=== PATIENT | female | born 1945 | race Caucasian/White ===

== ENCOUNTER 2018-11-16 10:50 | Inpatient (IN) | payer OTHER ==
--- NOTE | 2018-11-16 06:47 | PDHPUP ---
History & Physical Update H&P update statement: This history and physical update is based on an assessment of the patient which was completed after admission or registration (within 24 hours), but prior to the surgery/procedure. H&P update: H&P reviewed & patient examined, no change in patient's condition since H&P completed
[~2018-11-16 10:50] MED LIST: ALBUTEROL 60 PUFFS/8 GM MDI IH PRN
[2018-11-16] MEDS ORDERED: ACETAMINOPHEN 500 MG TAB PO ONE (11:23)
[2018-11-16] MEDS ORDERED: ceFAZolin 2 GM/DEXTROSE 100 ML IV ONE (11:23)
[2018-11-16] MEDS ORDERED: GABAPENTIN 300 MG CAP PO ONE (11:23)
[2018-11-16] MEDS ORDERED: BACITRACIN 50,000 UNITS/10 ML SYR IRR ONE (11:32)
[2018-11-16] MEDS ORDERED: EPINEPHrine 1 MG/ML INJ ONE (11:32)
[2018-11-16] MEDS ORDERED: THROMBIN (BOVINE) 20,000 UNIT VIAL TP ONE (11:32)
[2018-11-16] MEDS ORDERED: CHLORHEXIDINE GLUC HIBICLENS 118 ML BTL TP ONE (11:32)
[2018-11-16] MEDS ORDERED: BUPIVACAINE 0.25% 30 ML SDV ONE (11:32)
[2018-11-16] MEDS ORDERED: GABAPENTIN 300 MG CAP ONE (11:58)
[2018-11-16] MEDS ORDERED: ACETAMINOPHEN 500 MG TAB ONE (11:58)
[2018-11-16] MEDS ORDERED: CEFAZOLIN 2 GM/DEXTROSE/100 ML BAG IV ONE (11:58)
--- NOTE | 2018-11-16 12:23 | PDANEPAE ---
ANE Past Medical History - Cardiovascular History Hx Hypertension: Yes Hx Arrhythmias: No Hx Chest Pain: No Hx Coronary Artery / Peripheral Vascular Disease: No Hx CHF / Valvular Disease: No Hx Palpitations: No Cardiovascular History Comment: pcp monitors bp medications - Pulmonary History Hx COPD: No Hx Asthma/Reactive Airway Disease: Yes Hx Recent Upper Respiratory Infection: No Hx Oxygen in Use at Home: No Hx Sleep Apnea: No Sleep Apnea Screening Result - Last Documented: Negative Pulmonary History Comment: prone to bronchitis with colds. instructed pt to bring inhaler - Neurologic History Hx Cerebrovascular Accident: No Hx Seizures: No Hx Dementia: No Neurologic History Comment: hx of spinal fusion - Endocrine History Hx Diabetes: Yes Hypothyroid: Yes Hyperthyroid: No Obesity: no Endocrine History Comment: type 2. hypothyroidism - Renal History Hx Renal Disorders: No - Liver History Hx Hepatic Disorders: No - Neurological & Psychiatric Hx Hx Neurological and Psychiatric Disorders: No - Cancer History Hx Cancer: No - Congenital Disorder History Hx Congenital Disorders: No - GI History Hx Gastrointestinal Disorders: Yes Gastrointestinal History Comment: reflux - Other Health History Other Health History: wears glasses. scalp cellulitis at times, uses topical clindamycin- no issues currently - Chronic Pain History Chronic Pain: Yes (bilateral legs, hips) - Surgical History Prior Surgeries: prp injections on bilateral knees 2016. original spinal fusion 12/02/09. prk vision correction 03/24/2000. doreen 05/02/1997. right ganglion cyst 04/28/1986. d&c 09/06/1969. oral surgery 10/14/1964 and 1963. toenail cyst 04/13/1957. tonsillectomy 07/1951 ANE Review of Systems Review of Systems: - Exercise capacity METS (RN): 4 METS ANE Patient History - Allergies Allergies/Adverse Reactions: codeine Allergy (Verified 11/16/18 11:27) "I fly aka its a high" and nausea cyclobenzaprine [From Flexeril] Allergy (Verified 11/16/18 11:27) RLS, cant sit still pregabalin [From Lyrica] Allergy (Verified 11/16/18 11:27) RLS, cant sleep/sit still Sulfa (Sulfonamide Antibiotics) Allergy (Verified 11/16/18 11:27) GI Upset - Home Medications Home Medications: Albuterol [Proventil Inhaler HFA (*)] 1 - 2 puffs IH Q4H PRN 02/21/19 [Last Taken Unknown] Aspirin [Aspirin 81mg (*)] 81 mg PO DAILY 11/03/18 [Last Taken 11/15/18] Cholecalciferol Vit D3 [Vitamin D3 (*)] 1,000 units PO DAILY 11/03/18 [Last Taken 11/15/18] DULoxetine [Cymbalta 60 MG (*)] 60 mg PO DAILY 11/03/18 [Last Taken 11/16/18] Herbals/Supplements -Info Only 1 ea PO DAILY 11/03/18 [Last Taken 11/09/18] Lansoprazole 30 mg PO DAILY 11/03/18 [Last Taken 11/16/18] Levothyroxine [Synthroid 88 mcg (*)] 88 mcg PO HS 11/03/18 [Last Taken 11/15/18] Olmesartan/Hydrochlorothiazide [Benicar Hct 20-12.5 mg Tablet] 1 each PO DAILY 11/03/18 [Last Taken 11/15/18] [place]-3 Fatty Acids [Fish Oil 1000 mg (*)] 1,000 mg PO DAILY 11/03/18 [Last Taken 11/09/18] Rosuvastatin Calcium [Crestor] 5 mg PO DAILY 11/03/18 [Last Taken 11/15/18] celeCOXIB [Celebrex (*)] 200 mg PO DAILY 11/03/18 [Last Taken 11/09/18] metFORMIN HCL [Glucophage 500 mg (*)] 500 mg PO BIDMEAL 11/04/18 [Last Taken 12/30] - NPO status NPO Since - Liquids (Date): 11/16/18 NPO Since - Liquids (Time): 01:00 NPO Since - Solids (Date): 11/15/18 NPO Since - Solids (Time): 23:00 - Smoking Hx Smoking Status: Never smoked - Family Anes Hx Family Hx Anesthesia Complications: sister- has latex allergy and some unknown issue with anesthesia- pt will call her prior to surgery ANE Labs/Vital Signs - Vital Signs Blood Pressure: 117/72 Heart Rate: 94 Respiratory Rate: 18 O2 Sat (%): 94 Height: 157.48 cm Weight: 65.771 kg ANE Physical Exam - Airway Neck exam: decreased ROM Mallampati Score: Class 1 Mouth exam: normal dental/mouth exam - Pulmonary Pulmonary: no respiratory distress - Cardiovascular Cardiovascular: regular rate and rhythym - ASA Status ASA Status: II ANE Anesthesia Plan Anesthesia Plan: general endotracheal anesthesia
[2018-11-16] MEDS ORDERED: POLYETHYLENE GLYCOL 3350 17 GM PKT PO PRN (12:33)
[2018-11-16] MEDS ORDERED: LACTULOSE 20 GM/30 ML UDCUP PO PRN (12:33)
[2018-11-16] MEDS ORDERED: diphenhydrAMINE 25 MG CAP PO PRN (12:33)
[2018-11-16] MEDS ORDERED: ONDANSETRON 4 MG/2 ML VIAL IVP PRN ×2 (12:33→17:02)
[2018-11-16] MEDS ORDERED: MAGNESIUM HYDROXIDE 30 ML UDCUP PO PRN (12:33)
[2018-11-16] MEDS ORDERED: ONDANSETRON DISINTEGRATING 4 MG TAB PO PRN (12:33)
[2018-11-16] MEDS ORDERED: BISACODYL 10 MG SUPP PR PRN (12:33)
[2018-11-16] MEDS ORDERED: HYDROmorphONE/DILAUDID 1 MG/ML INJ IVP PRN ×2 (12:33→17:04)
[2018-11-16] MEDS ORDERED: ePHEDrine SULFATE 25 MG/5 ML SYR ONE (12:40)
[2018-11-16] MEDS ORDERED: PHENYLEPHRINE HCL 100 MCG/ML SYR ONE (12:40)
[2018-11-16] MEDS ORDERED: ONDANSETRON 4 MG/2 ML VIAL ONE (12:40)
[2018-11-16] MEDS ORDERED: ROCURONIUM 50 MG/5 ML VIAL ONE (12:40)
[2018-11-16] MEDS ORDERED: LIDOCAINE 2% 5 ML SDV ONE (12:40)
[2018-11-16] MEDS ORDERED: PROPOFOL 200 MG/20 ML VIAL ONE ×2 (12:41)
[2018-11-16] MEDS ORDERED: REMIFENTANIL HCL 1 MG VIAL ONE ×2 (12:41)
[2018-11-16] MEDS ORDERED: fentaNYL 250 MCG/5 ML INJ ONE (12:41)
[2018-11-16] MEDS ORDERED: NS 1,000 ML IV SCH (12:45)
[2018-11-16] MEDS ORDERED: LABETALOL HCL 5 MG/ML 20 ML MDV IVP PRN (17:02)
[2018-11-16] MEDS ORDERED: NALOXONE HCL 0.4 MG/ML INJ IVP PRN (17:02)
--- NOTE | 2018-11-16 17:22 | POSTOPPROG ---
Post Op Note Date of Operation: 11/16/18 Surgeon: Apple Duckworth Photograph Retoucher: MAURILIO Delong Anesthesiologist: MD Wesley Anesthesia: GET(General Endotracheal), Local (Specify) Pre-op Diagnosis: lumbar stenosis L2/3, PSF L2-L5 Post-op Diagnosis: lumbar stenosis L2/3, PSF L2-L5 Indication: BLE pain, LBP Procedure: TLIF L2/3, PSF L2-L5 Findings: see op report Inf/Abcess present in the surg proc area at time of surgery?: No Depth: Deep Incisional (Fascial) EBL: 100-500 Total fluids administered: see anesthesia record Complications: none Drains: Byron Alcantar
--- NOTE | 2018-11-16 17:25 | SOAPPROG ---
SOAP Progress Note Assessment/Plan: Post Op Visit: S: Awake and alert. NAD. Pt with expected lower back pain O: AFVSS/PERRLA/EOMI no droop CN 2-12 grossly intact +lt touch 5/5 BUE/BLE = CDI CIRILO in place A/P: 73 yo female that is s/p L2/3 TLIF with PSF L2-L5 -orders in place -call with any questions or concerns -take medications as directed -wear brace as directed -Pt seen by Dr Duckworth as well Objective: Vital Signs Temp Pulse Resp BP Pulse Ox 37 C 94 18 117/72 94 11/16/18 11:36 11/16/18 12:23 11/16/18 12:23 11/16/18 12:23 11/16/18 12:23 ICD10 Worksheet Patient Problems: Problems Problem Status Onset Arthrodesis status Acute Lumbar radicular pain Acute Lumbar stenosis Acute - ICD10 Problem Qualifiers (1) Lumbar stenosis (2) Lumbar radicular pain (3) Arthrodesis status
--- NOTE | 2018-11-16 17:33 | POSTANESTH ---
Post Anesthetic Evaluation Cardiovascular Status: Normal, Stable Respiratory Status: Normal, Stable Level of Consciousness/Mental Status: Can Participate in Eval Pain Control: Adequate, Prn Tx Ordered Nausea/Vomiting Control: Adequate, Prn Tx Ordered Complications Possibly Related to Anesthesia: None Noted
[2018-11-16] MEDS ORDERED: fentaNYL 100 MCG/2 ML INJ ONE (17:35)
[2018-11-16] MEDS: fentaNYL 100 MCG/2 ML INJ IVP PRN ×2 (17:38→17:50)
[2018-11-16] MEDS: ACETAMINOPHEN 500 MG TAB PO SCH ×2 (18:46→20:58)
[2018-11-16] MEDS: DULoxetine 60 MG CAP PO SCH (18:46)
[2018-11-16] MEDS: GABAPENTIN 300 MG CAP PO SCH ×2 (18:46→20:56)
[2018-11-16] MEDS: CHOLECALCIFEROL VIT D3 1,000 UNITS TAB PO SCH (18:46)
[2018-11-16] MEDS: metFORMIN HCL 500 MG TAB PO SCH (18:47)
[2018-11-16] MEDS: ROSUVASTATIN CALCIUM 10 MG TAB PO SCH (18:47)
[2018-11-16] MEDS: FAMOTIDINE 20 MG TAB PO SCH (20:56)
[2018-11-16] MEDS: SENNOSIDES/DOCUSATE SODIUM TAB PO SCH (20:56)
[2018-11-16] MEDS: LEVOTHYROXINE 88 MCG TAB PO SCH (20:59)
[2018-11-16] MEDS: ceFAZolin 2 GM/DEXTROSE 100 ML IV SCH (21:00)
[2018-11-16] MEDS: METHOCARBAMOL 750 MG TAB PO PRN (22:57)
--- NOTE | 2018-11-17 04:15 | GOP ---
[f rep st] OPERATIVE REPORT DATE OF OPERATION: 11/16/2018 SURGEON: Virgen Duckworth MD [employer] SUPERVISOR: Jermaine Delong PA-C. 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 PROCEDURE PERFORMED: Removal of posterior nonsegmental hardware at L4-5, posterolateral and interver tebral arthrodesis at L2-3, posterolateral arthrodesis only at L3-4, without decompression, posterior segmental instrumentation L2, L3, L4, L5, placement of biomechanical intervertebral device L2-3, domenica e incision bone graft harvest, spinal stereotaxy. FINDINGS: ESTIMATED BLOOD LOSS: 250 cc. INDICATIONS: The patient is a 73-year-old who had a prior history of a successful spinal fusion in 2 010 at L4-5, who presented to my office with severe lumbosacral radiculopathy that was unbearable. A n MRI demonstrated severe stenosis of the L2-3 level, above a prior fusion at L4-5. There was no cri tical stenosis at L3-4, and I suggested extension of her L4-5 fusion to the L2-3 level. I saw no maria l son to do a decompression at L3-4, and the possibility of it already being fused was considered. The risk of nerve injury, spinal fluid leak, continued symptoms, pseudoarthrosis, adjacent segment disea se, the need for future spine surgery, was discussed. She knew there was a chance that surgery may f ail to alleviate her pain, and she wanted to proceed despite these risks. She did have some evidence of disease at the L5-S1 level, but there was no critical compression of the nerves at that level, al though there was some right foraminal stenosis at L5-S1. Her symptoms did not fit that, and her symp toms were in fact worse on the left than on the right. DESCRIPTION OF PROCEDURE: The patient was taken to the operating room, placed in the supine position . General anesthesia was begun. She was flipped prone onto the Byron table. Care was taken to pa d all points of contact. Her back was sterilely prepped and draped in the usual fashion. A localizi ng x-ray was taken. We made a midline incision from the spinous process of L1, down to the spinous p rocess of L5. The subcutaneous tissue was dissected, actually in this case we used a plasma blade, a nd we performed a subperiosteal dissection down the inferior lamina of L1. We exposed the complete l danita of L2, L3. We exposed the posterolateral hardware at L4 and L5. This was [employer], and we removed this hardware without difficulty. She had a solid bony union at L4-5. We then decorticated all the posterolateral bone at L2-3, L3-4, for posterolateral arthrodesis at L2-3, 3-4. We attached the Stealth reference frame to the spinous process of L3. We performed an O-arm spin, and using frameless Stealth stereotaxy, placed pedicle screws bilaterally at L2, L3, and L4 and L5. Her pedicles were very small. We used very small screws during her last surgery at L4-5, and the ped icles at L2 were about 4 to 4.5 mm across, and we chose a 4.5 mm screw on the right there, and we use d even a 4 mm screw on the left. They were 40 mm in length. At L3 they were slightly large, and we used 4.5 and a 4 mm screw, they were both 40 mm in length. We replaced the prior hardware that she h ad at L4 and L5. the left when we put in the left L4 screw, but it was small and self-escalante ited. We removed the screw, probed the hole, and there was no breach whatsoever. We did later repla ce the screw, and after all these screws were in place, we performed an O-arm spin. All the screws o n the O-arm looked to be in exceptional position, without pedicle breach, but the left L3 screw, righ t at the base of the pedicle where it entered the vertebral body, it looked as if there may be just t he slightest medial breach at L3 on the left. We stimulated all the screws. They all stimulated abo ve 20 milliamperes, and so they were considered safe from the electrodiagnostic standpoint, but becau se of the appearance of this possible medial breach on the O-arm spin, I elected to remove the screw. She had solid screws at L4 and L5, and the screw on the left at L3 was superfluous, so I decided to remove it. We then took rods, placed them down over the screws, and distracted slightly at L2-3. W jerrell tucker tightened all the cap screws according to company specification, and then we cleaned off all soft tissue at L2-3, L3-4 for arthrodesis. We then harvested the inferior L2 spinous process for aut ologous grafting purposes, then we harvested the rostral L3 spinous process for autologous grafting p urposes. We then introduced the operating microscope, and under the microscope we drilled bilateral L2-3 laminectomy, with a complete left facetectomy at L2-3, and a right chuy-facetectomy. Under the microscope, we decompressed the thecal sac thoroughly from the mid L3 pedicle to the inferior L2 pedi ester. There was severe stenosis bilaterally, and we got a great decompression on the right, and when we went to the left the facet joint complex was actually stuck to the dura laterally, and we really c ould not separate it. We spent considerable time working on the left side to remove the facet, and t he ligamentum flavum, and facet capsule that was stuck to the dura, but it could not be totally remov ed. We then went around it laterally, out through where the exiting L2 root was, and identified this root, and freed it from that root, as well as freed it from its rostral attachments at L2, and its i nferior attachments at L3, and this allowed it to pop up out of the spinal canal, and it was no longe r compressive in nature. We then spent some additional time trying to get it from the apolinar ersing L3 root and the dura, but we could not really do that. We therefore elected to leave it in pl ben, since it was noncompressive. We swept the dura and stuck a piece of bone and ligament on top of the dura medially. We incised the L2-3 disk, removed the disk, and the cartilaginous endplates comp letely. We roughened the subchondral bone to create arthrodesis at L2-3. We then chose a 7 x 23 mm device, based upon a sizer that we put in, and shot an x-ray. We chose a 7 x 23 mm expandable device . We packed the disk space with bone morphogenic protein and bone autograft, followed by the device, which was expanded under fluoroscopic guidance. We had nice lordosis at L2-3. We then decorticated all the remaining bone posterolaterally bilaterally at L2-3, 3-4 to conclude our posterolateral arth rodesis at both L2-3, 3-4. We did not do any decompression at the L3-4 level. We only simply did a posterolateral arthrodesis. We then took bone autograft and BMP, and placed it posterolaterally bila terally from L2 to down to L3 and L4, placed a subfascial drain, and then closed the incision in mult iple layers using Vicryl sutures. Steri-Strips were applied the skin. The patient was reversed from anesthesia, extubated, and transferred to the recovery room in stable condition. There were no comp lications whatsoever. She tolerated the procedure well. COMPLICATIONS: None. /[id number]/MODL
[2018-11-17] MEDS: ceFAZolin 2 GM/DEXTROSE 100 ML IV SCH (05:13)
[2018-11-17] MEDS: ACETAMINOPHEN 500 MG TAB PO SCH ×3 (05:17→22:05)
[2018-11-17 05:45] LABS: PLATELET COUNT 105 10^3/uL (150-400)
--- NOTE | 2018-11-17 06:42 | NEUSURGPN ---
Date of Surgery: 11/16/18 Post Op Day: 1 Assessment/Plan: Assessment: 73 yo female that is s/p L2/3 TLIF with PSF L2-L5 POD #1 Plan: -s/p lumbar fusion: doing well this am. Pt with some expected lower back pain -pt with some "gas pains". States is passing gas. No BM today. No abd pain but some distension-will see how she does today -PT/OT ordered -H/H: 07/12 -brace when out of bed -post op xrays pending -orders in place -call with any questions or concerns -take medications as directed -CIRILO in place and still productive-plan to dc later today or in am -Pt seen by Dr Duckworth as well Subjective: Awake and alert. Pt did well last night. No zhou/neck/chest/abd or gu complaints except for some "gas pains". Pt is passing gas. No BM as of yet. No f/c/n/v/d. Objective: AFVSS/PERRLA/EOMI no droop CN 2-12 grossly intact +lt touch 5/5 BUE/BLE = CDI CIRILO in place Neuro Check Frequency: per routine Urinary Catheter in Place: No Catheter Insertion Date: 11/16/18 - Physician Discussed Patient with Dr.: Gucci Patient Seen by : Gucci Neurosurgery Physical Exam - Vitals, I&O, Labs I and O 11/16/18 11/17/18 11/18/18 05:59 05:59 05:59 Intake Total 4060 688 Output Total 1650 Balance 2410 688 Weight 65.771 kg Intake: Oral (ml) 360 IV Intake (ml) 3600 588 IV Infused (ml) 100 100 ceFAZolin 2 GM/DEXTROSE 100 100 100 ml @ 200 mls/hr IV ONCALL ONE Rx#:[id number] Output: Urine (ml) 1060 Catheter 1060 Estimated Blood Loss (ml) 250 CIRILO Drain Output (ml) 340 Back Byron Alcantar 340 Vital Signs Temp Pulse Resp BP Pulse Ox 36.8 C 82 16 144/81 H 98 11/17/18 04:01 11/17/18 04:01 11/17/18 04:01 11/17/18 04:01 11/17/18 04:01 Laboratory Results 11/17/18 05:05 11/17/18 05:05 ICD10 Worksheet Patient Problems: Problems Problem Status Onset Arthrodesis status Acute Lumbar radicular pain Acute Lumbar stenosis Acute - ICD10 Problem Qualifiers (1) Lumbar stenosis (2) Lumbar radicular pain (3) Arthrodesis status
[2018-11-17] MEDS: CHOLECALCIFEROL VIT D3 1,000 UNITS TAB PO SCH (08:46)
[2018-11-17] MEDS: HYDROCHLOROTHIAZIDE 25 MG TAB PO SCH (08:47)
[2018-11-17] MEDS: PANTOPRAZOLE SODIUM 40 MG TAB PO SCH (08:47)
[2018-11-17] MEDS: DULoxetine 60 MG CAP PO SCH (08:47)
[2018-11-17] MEDS: OLMESARTAN MEDOXOMIL 20 MG TAB PO SCH (08:47)
[2018-11-17] MEDS: metFORMIN HCL 500 MG TAB PO SCH ×2 (08:48→17:55)
[2018-11-17] MEDS: FAMOTIDINE 20 MG TAB PO SCH ×2 (08:48→20:39)
[2018-11-17] MEDS: ROSUVASTATIN CALCIUM 10 MG TAB PO SCH (08:48)
[2018-11-17] MEDS: SENNOSIDES/DOCUSATE SODIUM TAB PO SCH ×2 (08:48→20:40)
[2018-11-17] MEDS: oxyCODONE IR 5 MG TAB PO PRN ×3 (08:54→20:43)
--- NOTE | 2018-11-17 10:29 | PDMN ---
Medical Necessity Medical necessity: Pt meets IP criteria as of 11/16/18 per MCG S-820 (Lumbar Fusion) 2 days; IP only procedure. AUTH# [id number] Approved
[2018-11-17] MEDS: METHOCARBAMOL 750 MG TAB PO PRN ×2 (11:32→22:43)
[2018-11-17] MEDS: GABAPENTIN 300 MG CAP PO SCH ×3 (13:09→22:05)
--- NOTE | 2018-11-17 14:37 | ASMTCMCOM ---
CM Note CM Note Notes: Pt had planned spinal surgery, resides with spouse. PT rec [facility]HC, pt wants HC and chooses [facility]. D/c plan of care: Home with [facility] PT Date Signed: 11/17/2018 02:36 PM Electronically Signed By:BASILIO Caldwell
[2018-11-17] MEDS: LEVOTHYROXINE 88 MCG TAB PO SCH (20:39)
[2018-11-18] MEDS: oxyCODONE IR 5 MG TAB PO PRN (04:26)
[2018-11-18] MEDS: GABAPENTIN 300 MG CAP PO SCH ×3 (05:57→21:57)
[2018-11-18] MEDS: ACETAMINOPHEN 500 MG TAB PO SCH ×3 (05:57→22:39)
--- NOTE | 2018-11-18 08:27 | SOAPPROG ---
SOAP Progress Note Assessment/Plan: Assessment: 73 yo female POD #2 s/p L2-5 fusion. Doing well, but still having back pain and is requesting 1 more day to ensure pain control on oral meds Plan: Pain mgmt. PT/OT as tolerated LSO when OOB No CIRILO in place DC planning Subjective: Awake, alert, lying on her side due to muscular right sided back pain Denies numbness, tingling or weakness Objective: Vital Signs Temp Pulse Resp BP Pulse Ox 37.4 C 85 16 106/54 L 100 11/18/18 07:34 11/18/18 07:34 11/18/18 07:34 11/18/18 07:34 11/18/18 07:34 Laboratory Results 11/17/18 05:05 11/17/18 05:05 11/17/18 11/18/18 11/19/18 05:59 05:59 05:59 Intake Total 4060 1038 Output Total 1650 80 Balance 2410 958 NEuro: CABALLERO, Sens +LT follows commands A+[id number] Dressing: CDI Post op xrays show good postion of hardware ICD10 Worksheet Patient Problems: Problems Problem Status Onset Arthrodesis status Acute Lumbar radicular pain Acute Lumbar stenosis Acute
[2018-11-18] MEDS: metFORMIN HCL 500 MG TAB PO SCH ×2 (09:49→18:29)
[2018-11-18] MEDS: CHOLECALCIFEROL VIT D3 1,000 UNITS TAB PO SCH (09:50)
[2018-11-18] MEDS: PANTOPRAZOLE SODIUM 40 MG TAB PO SCH (09:50)
[2018-11-18] MEDS: ROSUVASTATIN CALCIUM 10 MG TAB PO SCH (09:50)
[2018-11-18] MEDS: DULoxetine 60 MG CAP PO SCH (09:50)
[2018-11-18] MEDS: SENNOSIDES/DOCUSATE SODIUM TAB PO SCH ×2 (09:50→20:53)
[2018-11-18] MEDS: FAMOTIDINE 20 MG TAB PO SCH ×2 (09:50→20:53)
[2018-11-18] MEDS: OLMESARTAN MEDOXOMIL 20 MG TAB PO SCH (10:06)
[2018-11-18] MEDS: HYDROCHLOROTHIAZIDE 25 MG TAB PO SCH (10:06)
[2018-11-18] MEDS: LEVOTHYROXINE 88 MCG TAB PO SCH (20:52)
[2018-11-19] MEDS: GABAPENTIN 300 MG CAP PO SCH (05:42)
[2018-11-19] MEDS: ACETAMINOPHEN 500 MG TAB PO SCH ×2 (06:27→14:32)
[2018-11-19] MEDS ORDERED: ENOXAPARIN 40 MG/0.4 ML SYR SC SCH (09:00)
[2018-11-19] MEDS: metFORMIN HCL 500 MG TAB PO SCH (09:11)
[2018-11-19] MEDS: CHOLECALCIFEROL VIT D3 1,000 UNITS TAB PO SCH (09:11)
[2018-11-19] MEDS: ROSUVASTATIN CALCIUM 10 MG TAB PO SCH (09:12)
[2018-11-19] MEDS: PANTOPRAZOLE SODIUM 40 MG TAB PO SCH (09:12)
[2018-11-19] MEDS: DULoxetine 60 MG CAP PO SCH (09:13)
[2018-11-19] MEDS: FAMOTIDINE 20 MG TAB PO SCH (09:13)
[2018-11-19] MEDS: SENNOSIDES/DOCUSATE SODIUM TAB PO SCH (09:13)
[2018-11-19] MEDS: METHOCARBAMOL 750 MG TAB PO PRN (09:16)
--- NOTE | 2018-11-19 10:43 | NEUSURGPN ---
Date of Surgery: 11/16/18 Post Op Day: 3 Assessment/Plan: Assessment: 73 yo female that is s/p L2/3 TLIF with PSF L2-L5 POD #3 Plan: -s/p lumbar fusion: doing well this am, some mild left leg symptoms -PT/OT ordered -brace when out of bed -post op xrays show stable hardware placement -Ok to discharge home with [facility] today -call with any questions or concerns -Discussed patient with Dr Duckworth Subjective: sitting in chair, doing well Objective: AxOx4 PERRLA MAEx4 5/5 BUE, BLE Sensation intact to light touch BLE Incision/steri strips CDI Neuro Check Frequency: per routine Urinary Catheter in Place: No Catheter Insertion Date: 11/16/18 - Physician Discussed Patient with : Gucci Neurosurgery Physical Exam - Vitals, I&O, Labs I and O 11/18/18 11/19/18 11/20/18 05:59 05:59 06:59 Intake Total 1038 Output Total 80 400 1000 Balance 958 -400 -1000 Intake: Oral (ml) 350 IV Intake (ml) 588 IV Infused (ml) 100 ceFAZolin 2 GM/DEXTROSE 100 100 ml @ 200 mls/hr IV ONCALL ONE Rx#:[id number] Output: Urine (ml) 400 1000 Toilet 400 1000 CIRILO Drain Output (ml) 80 Back Byron Alcantar 80 Other: Intake Quantity Yes Sufficient Number of Voids Toilet 1 1 Vital Signs Temp Pulse Resp BP Pulse Ox 36.9 C 89 14 113/58 L 95 11/19/18 08:00 11/19/18 08:00 11/19/18 08:00 11/19/18 10:31 11/19/18 08:00 Laboratory Results 11/17/18 05:05 11/17/18 05:05 ICD10 Worksheet Patient Problems: Problems Problem Status Onset Arthrodesis status Acute Lumbar radicular pain Acute Lumbar stenosis Acute
--- NOTE | 2018-11-19 10:52 | PDIAF ---
- Diagnosis Diagnosis: S/P lumbar fusion Code Status: Full Code - Medication Management Discharge Medications: electronically signed and located in the Home Medication List. PICC Care - Routine: N/A - Orders Services needed: Home Care, Registered Nurse, Certified Last Turner, Physical Therapy, Occupational Therapy Home Care Face to Face: I certify that this patient was under my care and that I had the required [id number] encounter meeting the encounter requirements on the discharge day. My findings support the fact that the patient is homebound as defined in Home Care Face to Face Continued: CMS Chapter 7 Medicare Benefits Manual 30.1.1 , The condition of the patient is such that there exists a normal inability to leave home and consequently, leaving home would require a considerable and taxing effort. Diet Recommendation: no restrictions on diet Diet Texture: Regular Texture Diet Hi: Not applicable Nay Stockings Discontinue Date: Ok to remove NAY hose when ambulating 100 yards 4 times/day Wound Care Instructions: Leave steri strips in place, allow them to fall off on their own. No dressing needed Activity/Weight Bearing Restrictions: Avoid lifting greater than 10 pounds. No bending or twisting Equipment: Wear brace when out of bed Additional Instructions: No bending or twisting Do not lift greater than 10 pounds Wear brace when out of bed Ok to shower Do not submerge incision (bath tub, hot tub etc.)until seen for post op visit Do not take NSAIDs - Follow Up Care Current Providers and Referrals: WYATT LITTLE [Other] Apple Duckworth MD [Medical Doctor] - follow up in 2 weeks
[2018-11-19] MEDS: HYDROCHLOROTHIAZIDE 25 MG TAB PO SCH (11:10)
[2018-11-19] MEDS: OLMESARTAN MEDOXOMIL 20 MG TAB PO SCH (11:11)
[2018-11-19 11:59] VITALS: BP 111/65
[2018-11-19] MEDS: oxyCODONE IR 5 MG TAB PO PRN (14:31)
== END 2018-11-19 14:38 | disposition home health service (06) | DRG 455 ==
LOC: F1N 10:50 → F3N 18:37
PROVIDERS: ADMIT Neurological Surgery; ATTEND Neurological Surgery
DX: M47.26 Other spondylosis with radiculopathy, lumbar region (principal); Z98.1 Arthrodesis status; I10 Essential (primary) hypertension; E11.9 Type 2 diabetes mellitus without complications; E03.9 Hypothyroidism, unspecified; K21.9 Gastro-esophageal reflux disease without esophagitis
CPT/HCPCS: 97116-GP; 97161-GP; 97165-GO; 97530-GO; 97530-GP; 97535-GO; C1713; J0171; J0690; J1650; J2370; J2405; J2704; J3010